=== PATIENT | female | born 1950 | race Caucasian/White ===

== ENCOUNTER → 2019-08-15 | Outpatient (CLI) | payer MEDICARE, MEDICAID, OTHER ==
--- NOTE | 2019-08-16 01:07 | REP ---
Clinical: Acute left shoulder pain. Technique: Internal rotation, external rotation, and Y view of the left shoulder. Findings: Age-related arthritic changes include cortical irregularity and very subtle spurring at the acromioclavicular joint as well as blunting to the calcified glenoid rim. The subacromial space is normal. No acute fracture or dislocation is appreciated. No periarticular calcifications or loose bodies noted. Surrounding soft tissues are unremarkable. Impression: Age-related arthritic changes. Electronically Signed by Mike Everett MD 08/16/2019 12:59 A
== END ==
LOC: M ADAMS 11:28
PROVIDERS: ATTEND Physician Assistant
DX: M25.512 Pain in left shoulder (principal); S84.90XA Injury of unspecified nerve at lower leg level, unspecified leg, initial encounter; F17.210 Nicotine dependence, cigarettes, uncomplicated; X58.XXXA Exposure to other specified factors, initial encounter; Y92.89 Other specified places as the place of occurrence of the external cause; Y93.9 Activity, unspecified; Y99.9 Unspecified external cause status
CPT/HCPCS: 73030; 90732; 93005; G0009; G0463

== ENCOUNTER → 2019-08-15 | Outpatient (REF) | payer OTHER ==
[2019-08-15 13:12] LABS: HEMATOCRIT 41.9 % (36.0-47.0); HEMOGLOBIN 13.8 g/dl (12.0-15.5); MEAN CORPUSCULAR HEMOGLOBIN 29.7 pg (27.0-33.0); MEAN CORPUSCULAR HGB CONC 32.9 g/dl (32.0-36.5); MEAN CORPUSCULAR VOLUME 90.1 fl (80.0-96.0); PLATELET COUNT, AUTOMATED 298 10^3/uL (150-450); RED BLOOD COUNT 4.65 10^6/uL (4.00-5.40); WHITE BLOOD COUNT 11.7 10^3/uL (4.0-10.0)
[2019-08-15 13:38] LABS: ALBUMIN 4.1 GM/DL (3.2-5.2); ALT/SGPT 37 U/L (12-78); BILIRUBIN,TOTAL 0.4 MG/DL (0.2-1.0); BLOOD UREA NITROGEN 14 MG/DL (7-18); CALCIUM LEVEL 9.4 MG/DL (8.8-10.2); CARBON DIOXIDE LEVEL 29 MEQ/L (21-32); CHLORIDE LEVEL 104 MEQ/L (98-107); CHOLESTEROL LEVEL 292 MG/DL (<200); CHOLESTEROL RISK RATIO 5.959 (<5); CREATININE FOR GFR 0.87 MG/DL (0.55-1.30); FREE T4 0.34 NG/DL (0.76-1.46); GLOMERULAR FILTRATION RATE > 60.0 (>45); GLUCOSE, FASTING 86 MG/DL (70-100); HDL CHOLESTEROL 49 MG/DL (>40); LDL CHOLESTEROL 225 MG/DL (<100); NON-HDL-C 243 MG/DL; POTASSIUM SERUM 4.3 MEQ/L (3.5-5.1); SODIUM LEVEL 138 MEQ/L (136-145); TOTAL PROTEIN 7.6 GM/DL (6.4-8.2); TRIGLYCERIDES LEVEL 88 MG/DL (<150)
[2019-08-15 14:56] LABS: CREATININE, URINE 60.1 MG/DL; MALB URINE SIEMENS 36.8 MG/L; MAU/CREAT RATIO 61.2 MCG/MG (0.0-30.0)
== END ==
LOC: M SFHCADAM 11:13
PROVIDERS: ATTEND Physician Assistant
DX: F17.210 Nicotine dependence, cigarettes, uncomplicated (principal); E03.9 Hypothyroidism, unspecified; I10 Essential (primary) hypertension; E78.00 Pure hypercholesterolemia, unspecified; F32.2 Major depressive disorder, single episode, severe without psychotic features; Z12.11 Encounter for screening for malignant neoplasm of colon

== ENCOUNTER → 2020-01-02 | Outpatient (REF) | payer MEDICARE, MEDICAID, OTHER ==
[2020-01-02 18:13] LABS: MEAN CORPUSCULAR HEMOGLOBIN 28.6 pg (27.0-33.0); MEAN CORPUSCULAR HGB CONC 32.4 g/dl (32.0-36.5); MEAN CORPUSCULAR VOLUME 88.1 fl (80.0-96.0); PLATELET COUNT, AUTOMATED 265 10^3/uL (150-450); WHITE BLOOD COUNT 10.4 10^3/uL (4.0-10.0)
[2020-01-02 18:42] LABS: ALBUMIN 3.6 GM/DL (3.2-5.2); ALT/SGPT 20 U/L (12-78); BILIRUBIN,TOTAL 0.3 MG/DL (0.2-1.0); BLOOD UREA NITROGEN 13 MG/DL (7-18); CALCIUM LEVEL 9.1 MG/DL (8.8-10.2); CARBON DIOXIDE LEVEL 29 MEQ/L (21-32); CHLORIDE LEVEL 108 MEQ/L (98-107); CHOLESTEROL LEVEL 202 MG/DL (<200); CHOLESTEROL RISK RATIO 4.809 (<5); CREATININE FOR GFR 0.53 MG/DL (0.55-1.30); FREE T4 1.33 NG/DL (0.76-1.46); GLOMERULAR FILTRATION RATE > 60.0 (>45); GLUCOSE, FASTING 74 MG/DL (70-100); HDL CHOLESTEROL 42 MG/DL (>40); LDL CHOLESTEROL 127 MG/DL (<100); NON-HDL-C 160 MG/DL; POTASSIUM SERUM 4.5 MEQ/L (3.5-5.1); SODIUM LEVEL 139 MEQ/L (136-145); TOTAL PROTEIN 6.8 GM/DL (6.4-8.2); TRIGLYCERIDES LEVEL 163 MG/DL (<150)
== END ==
LOC: M LABDRWAD 17:51
PROVIDERS: ATTEND Physician Assistant
DX: E78.5 Hyperlipidemia, unspecified (principal); E03.9 Hypothyroidism, unspecified; R63.4 Abnormal weight loss

== ENCOUNTER → 2020-01-13 | Outpatient (CLI) | payer MEDICARE, MEDICAID ==
--- NOTE | 2020-01-22 13:01 | REP ---
CT CHEST WITHOUT CONTRAST: LOW-DOSE LUNG CANCER SCREENING STUDY COMPARISON: None. CT FINDINGS: There is a granulomatous calcification visible in the left lower lobe on Page 55 of 98 in Series 201 of todays study. A 4 mm noncalcified nodule is seen in the right middle lobe on Page 36. There is a 2-3 mm nodule in the periphery of the left lower lobe on Page 38. No lung mass or other nodule is seen. Vascular calcifications noted. Study is otherwise unremarkable. IMPRESSION: Lung-RADS Category 2 findings. Repeat screening study suggested in one year. MTDD
== END ==
LOC: M RAD 14:00
PROVIDERS: ATTEND Physician Assistant
DX: R91.8 Other nonspecific abnormal finding of lung field (principal); F17.210 Nicotine dependence, cigarettes, uncomplicated

== ENCOUNTER 2020-10-19 16:45 | Emergency (ER) | payer MEDICARE, MEDICAID ==
[~2020-10-19] VITALS: Ht 162.6 cm; Wt 63.8 kg
[2020-10-19 16:47] VITALS: BP 182/84
[2020-10-19] MEDS ORDERED: LEVO100T5 (17:01)
[2020-10-19] MEDS ORDERED: SERT50TA29 (17:01)
--- NOTE | 2020-10-19 17:35 | REPVR ---
PROCEDURE INFORMATION: Exam: CT Head Without Contrast Exam date and time: 10/19/2020 5:17 PM Age: 70 years old Clinical indication: Injury or trauma; Fall; Blunt trauma (contusions or hematomas); Additional info: Trauma, R/O bleeding TECHNIQUE: Imaging protocol: Computed tomography of the head without contrast. Radiation optimization: All CT scans at this facility use at least one of these dose optimization techniques: automated exposure control; mA and/or kV adjustment per patient size (includes targeted exams where dose is matched to clinical indication); or iterative reconstruction. COMPARISON: No relevant prior studies available. FINDINGS: Brain: No intracranial hemorrhage or extra-axial fluid collection. No evidence of mass effect or midline shift. Alonso-white matter differentiation is intact. Cerebral ventricles: No ventriculomegaly. Paranasal sinuses: Visualized sinuses are unremarkable. No fluid levels. Mastoid air cells: Unremarkable. Bones/joints: No acute osseus lesion or fracture. Soft tissues: Unremarkable. IMPRESSION: No acute intracranial pathology. Electronically signed by: Andres Briones On 10/19/2020 17:34:40 PM
--- NOTE | 2020-10-19 17:36 | REPVR ---
PROCEDURE INFORMATION: Exam: CT Cervical Spine Without Contrast Exam date and time: 10/19/2020 5:17 PM Age: 70 years old Clinical indication: Injury or trauma; Fall; Blunt trauma; Additional info: Trauma, R/O bleeding TECHNIQUE: Imaging protocol: Computed tomography images of the cervical spine without contrast. Radiation optimization: All CT scans at this facility use at least one of these dose optimization techniques: automated exposure control; mA and/or kV adjustment per patient size (includes targeted exams where dose is matched to clinical indication); or iterative reconstruction. COMPARISON: LOW DOSE LUNG SCREENING CT 01/13/2020 2:20 PM FINDINGS: Bones/joints: Straightening of the cervical lordosis. Vertebral body heights are maintained. No locked or perched facets. Multilevel facet arthropathy. No acute cervical spine fracture. The dens is intact. Atlanto-axial intervals are normal. Discs/Spinal canal/Neural foramina: Multilevel degenerative changes with intervertebral disc height loss and osteophyte formation, most prominently at C3-C4 and C5-C6. Multilevel areas of mild canal narrowing. Lungs: Lung apices are clear. Soft tissues: Unremarkable. IMPRESSION: No acute cervical spine fracture. Electronically signed by: Andres Briones On 10/19/2020 17:36:07 PM
== END 2020-10-19 20:05 | disposition left against medical advice (07) ==
LOC: M ED 16:45
DX: Z53.21 Procedure and treatment not carried out due to patient leaving prior to being seen by health care provider (principal)

== ENCOUNTER → 2020-10-23 | Outpatient (REF) | payer OTHER ==
[~2020-10-23] MED LIST: LEVO100T5; SERT50TA29
[2020-10-23 12:51] LABS: HEMATOCRIT 43.4 % (36.0-47.0); HEMOGLOBIN 14.2 g/dl (12.0-15.5); MEAN CORPUSCULAR HEMOGLOBIN 29.5 pg (27.0-33.0); MEAN CORPUSCULAR HGB CONC 32.7 g/dl (32.0-36.5); PLATELET COUNT, AUTOMATED 307 10^3/uL (150-450); RED BLOOD COUNT 4.82 10^6/uL (4.00-5.40); WHITE BLOOD COUNT 10.3 10^3/uL (4.0-10.0)
[2020-10-23 13:30] LABS: ALBUMIN 4.2 GM/DL (3.2-5.2); ALT/SGPT 30 U/L (12-78); BILIRUBIN,TOTAL 0.3 MG/DL (0.2-1.0); BLOOD UREA NITROGEN 20 MG/DL (7-18); CALCIUM LEVEL 9.1 MG/DL (8.8-10.2); CARBON DIOXIDE LEVEL 32 MEQ/L (21-32); CHLORIDE LEVEL 107 MEQ/L (98-107); CHOLESTEROL LEVEL 251 MG/DL (<200); CHOLESTEROL RISK RATIO 5.577 (<5); CREATININE FOR GFR 0.68 MG/DL (0.55-1.30); FREE T4 0.59 NG/DL (0.76-1.46); GLOMERULAR FILTRATION RATE > 60.0 (>45); GLUCOSE, FASTING 77 MG/DL (70-100); HDL CHOLESTEROL 45 MG/DL (>40); LDL CHOLESTEROL 179 MG/DL (<100); NON-HDL-C 206 MG/DL; POTASSIUM SERUM 4.9 MEQ/L (3.5-5.1); SODIUM LEVEL 139 MEQ/L (136-145); TOTAL PROTEIN 7.5 GM/DL (6.4-8.2); TRIGLYCERIDES LEVEL 135 MG/DL (<150)
== END ==
LOC: M SFHCADAM 09:39
PROVIDERS: ATTEND Physician Assistant
DX: F32.2 Major depressive disorder, single episode, severe without psychotic features (principal); F17.210 Nicotine dependence, cigarettes, uncomplicated; E03.9 Hypothyroidism, unspecified; E78.1 Pure hyperglyceridemia

== ENCOUNTER → 2020-10-23 | Outpatient (CLI) | payer OTHER ==
--- NOTE | 2020-10-23 10:06 | REP ---
INDICATION: INJURY OF LEFT GREAT TOE, INITIAL ENCOUNTER COMPARISON: None. TECHNIQUE: AP, lateral, bilateral oblique views left foot. FINDINGS: Age-related osteopenia and generalized arthritic degenerative changes are appreciated. There is a transverse fracture involving the distal aspect of the 1st toe proximal phalanx. No further acute fracture or dislocation identified. IMPRESSION: Subtle minimally angulated transverse fracture along the distal aspect of the 1st proximal phalanx. <Electronically signed by Mike Everett > 10/23/20 1008
== END ==
LOC: M ADAMS 09:41
PROVIDERS: ATTEND Physician Assistant
DX: S99.922A Unspecified injury of left foot, initial encounter (principal); W18.30XA Fall on same level, unspecified, initial encounter; Y92.009 Unspecified place in unspecified non-institutional (private) residence as the place of occurrence of the external cause

== ENCOUNTER → 2020-11-25 | Outpatient (CLI) | payer MEDICARE, MEDICAID ==
--- NOTE | 2020-11-25 09:56 | REP ---
INDICATION: BRUIT, SCREENING FOR AAA. COMPARISON: None. TECHNIQUE: Multiple sonographic images of the abdominal aorta. FINDINGS: Abdominal aortic measurements: Proximal, at diaphragm: 2.4 cm AP x 2.0 cm transverse Renal artery level: 1.6 cm AP x 1.9 cm transverse Mid aorta: 1.5 cm AP x 1.4 cm transverse Distal aorta, pre bifurcation: 1.1 cm AP x 1.0 cm transverse Right common iliac artery: 0.7 cm AP x 0.6 cm transverse Left common iliac artery: 0.6 cm AP x 0.6 cm transverse IMPRESSION: The aortic diameters are in the normal range. There is no abdominal aortic aneurysm. There is mild abdominal aortic atheroma. <Electronically signed by Ubaldo Garcia > 11/25/20 [id number]
--- NOTE | 2020-11-25 10:02 | REP ---
INDICATION: BRUIT, SCREENING FOR AAA. COMPARISON: None. TECHNIQUE: Bilateral carotid artery duplex ultrasound. FINDINGS: Peak flow velocities: Right left Internal carotid artery 70 cm/sec 93 cm/sec Int. Carotid diastolic the 25 cm/sec 32 cm/sec External carotid artery 81 cm/sec 108 cm/sec Common carotid artery 130 cm/sec 90 cm/sec ICA-CCA ratio 0.53 1.04 There is intimal thickening bilaterally and there is a focal atheromatous plaque in the distal bulbs extending in to the proximal internal carotid arteries and external carotid arteries bilaterally. However, the peak flow velocities are normal bilaterally. There is no evidence of stenosis on the right or the left by duplex ultrasound. There is antegrade flow in the vertebral arteries bilaterally. IMPRESSION: There is no evidence of stenosis by duplex Doppler ultrasound. <Electronically signed by Ubaldo Garcia > 11/25/20 0930
== END ==
LOC: M RAD 09:07
PROVIDERS: ATTEND Physician Assistant
DX: Z13.6 Encounter for screening for cardiovascular disorders (principal); I70.0 Atherosclerosis of aorta; R06.89 Other abnormalities of breathing; F17.210 Nicotine dependence, cigarettes, uncomplicated

== ENCOUNTER → 2021-02-10 | Outpatient (REF) | payer MEDICARE, MEDICAID ==
[2021-02-10 16:54] LABS: HEMATOCRIT 44.2 % (36.0-47.0); HEMOGLOBIN 14.3 g/dl (12.0-15.5); MEAN CORPUSCULAR HEMOGLOBIN 29.9 pg (27.0-33.0); MEAN CORPUSCULAR HGB CONC 32.4 g/dl (32.0-36.5); MEAN CORPUSCULAR VOLUME 92.3 fl (80.0-96.0); PLATELET COUNT, AUTOMATED 317 10^3/uL (150-450); RED BLOOD COUNT 4.79 10^6/uL (4.00-5.40); WHITE BLOOD COUNT 12.1 10^3/uL (4.0-10.0)
[2021-02-10 17:22] LABS: FOLATE 8.3 NG/ML; TOTAL 25(OH) VITAMIN D 18.2 NG/ML (30.0-100.0)
[2021-02-10 17:24] LABS: ALBUMIN 4.1 GM/DL (3.2-5.2); ALT/SGPT 28 U/L (12-78); BILIRUBIN,TOTAL 0.4 MG/DL (0.2-1.0); BLOOD UREA NITROGEN 19 MG/DL (7-18); CALCIUM LEVEL 9.9 MG/DL (8.8-10.2); CARBON DIOXIDE LEVEL 29 MEQ/L (21-32); CHLORIDE LEVEL 109 MEQ/L (98-107); CHOLESTEROL LEVEL 250 MG/DL (<200); CHOLESTEROL RISK RATIO 5.681 (<5); CREATININE FOR GFR 0.73 MG/DL (0.55-1.30); FREE T4 0.78 NG/DL (0.76-1.46); GLOMERULAR FILTRATION RATE > 60.0 (>45); GLUCOSE, FASTING 79 MG/DL (70-100); HDL CHOLESTEROL 44 MG/DL (>40); LDL CHOLESTEROL 172 MG/DL (<100); NON-HDL-C 206 MG/DL; POTASSIUM SERUM 4.6 MEQ/L (3.5-5.1); SODIUM LEVEL 141 MEQ/L (136-145); TOTAL PROTEIN 7.7 GM/DL (6.4-8.2); TRIGLYCERIDES LEVEL 168 MG/DL (<150)
== END ==
LOC: M SFHCADAM 14:06
PROVIDERS: ATTEND Physician Assistant
DX: E03.9 Hypothyroidism, unspecified (principal); E78.00 Pure hypercholesterolemia, unspecified; I10 Essential (primary) hypertension; G62.9 Polyneuropathy, unspecified

== ENCOUNTER → 2021-10-12 | Outpatient (REF) | payer OTHER ==
[2021-10-12 16:14] LABS: BASO # 0.1 10^3/uL (0.0-0.2); BASO % 0.6 % (0.0-1.0); EOS # 0.4 10^3/uL (0.0-0.5); EOS % 3.8 % (0.0-3.0); HEMATOCRIT 43.6 % (36.0-47.0); HEMOGLOBIN 14.2 g/dl (12.0-15.5); LYMPH # 2.3 10^3/uL (1.5-5.0); LYMPH % 22.6 % (24.0-44.0); MEAN CORPUSCULAR HEMOGLOBIN 29.5 pg (27.0-33.0); MEAN CORPUSCULAR HGB CONC 32.6 g/dl (32.0-36.5); MEAN CORPUSCULAR VOLUME 90.6 fl (80.0-96.0); MONO # 0.8 10^3/uL (0.0-0.8); MONO % 7.9 % (2.0-8.0); NEUTROPHILS # 6.7 10^3/uL (1.5-8.5); NEUTROPHILS % 64.6 % (36.0-66.0); PLATELET COUNT, AUTOMATED 268 10^3/uL (150-450); RED BLOOD COUNT 4.81 10^6/uL (4.00-5.40); WHITE BLOOD COUNT 10.4 10^3/uL (4.0-10.0)
[2021-10-12 16:28] LABS: ALT/SGPT 25 U/L (12-78); BILIRUBIN,TOTAL 1.3 MG/DL (0.2-1.0); BLOOD UREA NITROGEN 20 MG/DL (7-18); CALCIUM LEVEL 9.2 MG/DL (8.8-10.2); CARBON DIOXIDE LEVEL 28 MEQ/L (21-32); CHLORIDE LEVEL 109 MEQ/L (98-107); CHOLESTEROL LEVEL 129 MG/DL (<200); CHOLESTEROL RISK RATIO 3.685 (<5); CREATININE FOR GFR 0.72 MG/DL (0.55-1.30); FREE T4 1.12 NG/DL (0.76-1.46); GLOMERULAR FILTRATION RATE > 60.0 (>39); GLUCOSE, FASTING 90 MG/DL (70-100); HDL CHOLESTEROL 35 MG/DL (>40); LDL CHOLESTEROL 52 MG/DL (<100); NON-HDL-C 94 MG/DL; SODIUM LEVEL 141 MEQ/L (136-145); TOTAL PROTEIN 7.1 GM/DL (6.4-8.2); TRIGLYCERIDES LEVEL 209 MG/DL (<150)
== END ==
LOC: M SFHCADAM 13:18
PROVIDERS: ATTEND Physician Assistant
DX: E78.00 Pure hypercholesterolemia, unspecified (principal); E03.9 Hypothyroidism, unspecified; M25.562 Pain in left knee; I10 Essential (primary) hypertension

== ENCOUNTER → 2021-10-12 | Outpatient (CLI) | payer OTHER | LOC: M ADAMS 13:26 | PROVIDERS: ATTEND Physician Assistant | DX: M25.562 Pain in left knee (principal); M17.12 Unilateral primary osteoarthritis, left knee; M11.262 Other chondrocalcinosis, left knee ==

== ENCOUNTER → 2021-10-29 | Outpatient (CLI) | payer OTHER | LOC: M SOG 09:08 | PROVIDERS: ATTEND Orthopaedic Surgery Adult Reconstructive Orthopaedic Surgery | DX: M17.12 Unilateral primary osteoarthritis, left knee (principal); M25.462 Effusion, left knee; M25.562 Pain in left knee ==

== ENCOUNTER → 2022-11-15 | Outpatient (CLI) | payer OTHER ==
[2022-11-15 14:54] LABS: BLOOD UREA NITROGEN 21 MG/DL (9-23); CREATININE FOR GFR 0.65 MG/DL (0.55-1.30); GLOMERULAR FILTRATION RATE > 60.0 (>39)
[2022-11-15 14:56] LABS: FOLATE 12.5 NG/ML (>5.4); VITAMIN B12 LEVEL 404 PG/ML (211-911)
== END ==
LOC: M LAB 13:29
PROVIDERS: ATTEND Psychiatry & Neurology Neurology
DX: H53.2 Diplopia (principal); H02.409 Unspecified ptosis of unspecified eyelid

== ENCOUNTER → 2022-11-16 | Outpatient (REF) | payer OTHER ==
[2022-11-23 16:08] LABS: VITAMIN B1 LEVEL WHOLE BLOOD 151.9 nmol/L (66.5-200.0); VITAMIN B6,PYRIDOXAL PHOSPHATE 5.6 ug/L (3.4-65.2); VITAMIN E(ALPHA TOCOPHEROL) 8.7 mg/L (9.0-29.0); VITAMIN E(GAMMA TOCOPHEROL) 0.4 mg/L (0.5-4.9)
== END ==
LOC: M LAB REF 12:14
PROVIDERS: ATTEND Psychiatry & Neurology Neurology
DX: H53.2 Diplopia (principal); H02.409 Unspecified ptosis of unspecified eyelid

== ENCOUNTER → 2023-03-29 | Outpatient (REF) | payer OTHER ==
[2023-03-29 16:24] LABS: APPEARANCE, URINE HAZY (CLEAR); BACTERIA, URINE AUTO NEGATIVE (NEGATIVE); BASO # 0.1 10^3/uL (0.0-0.2); BASO % 0.7 % (0.0-1.0); BILIRUBIN, URINE AUTO NEGATIVE (NEGATIVE); BLOOD, URINE BLOOD NEGATIVE (NEGATIVE); COLOR, URINE YELLOW (YELLOW); EOS # 0.3 10^3/uL (0.0-0.5); EOS % 2.9 % (0.0-3.0); GLUCOSE, URINE (UA) AUTO NEGATIVE (NEGATIVE); HEMATOCRIT 43.8 % (36.0-47.0); HEMOGLOBIN 14.2 g/dl (12.0-15.5); KETONE, URINE AUTO TRACE mg/dL (NEGATIVE); LEUKOCYTE ESTERASE, URINE AUTO TRACE (NEGATIVE); LYMPH # 2.5 10^3/uL (1.5-5.0); LYMPH % 23.3 % (24.0-44.0); MEAN CORPUSCULAR HEMOGLOBIN 29.2 pg (27.0-33.0); MEAN CORPUSCULAR HGB CONC 32.4 g/dl (32.0-36.5); MEAN CORPUSCULAR VOLUME 89.9 fl (80.0-96.0); MONO % 9.4 % (2.0-8.0); MUCUS, URINE SMALL (NEGATIVE); NEUTROPHILS # 6.7 10^3/uL (1.5-8.5); NEUTROPHILS % 63.3 % (36.0-66.0); NITRITE, URINE AUTO NEGATIVE (NEGATIVE); PLATELET COUNT, AUTOMATED 268 10^3/uL (150-450); PROTEIN, URINE AUTO NEGATIVE (NEGATIVE); RBC, URINE AUTO 1 /HPF (0-3); RED BLOOD COUNT 4.87 10^6/uL (4.00-5.40); SPECIFIC GRAVITY URINE AUTO 1.024 (1.002-1.035); SQUAMOUS EPITHELIAL CELL UR AU 2 /HPF (0-6); UROBILINOGEN, URINE AUTO 0.2 mg/dL (0.0-2.0); WBC, URINE AUTO 3 /HPF (0-3); WHITE BLOOD COUNT 10.5 10^3/uL (4.0-10.0)
[2023-03-29 16:50] LABS: THYROID STIMULATING HORMONE 0.026 uIU/ML (0.55-4.78)
[2023-03-29 16:51] LABS: FREE T4 1.29 NG/DL (0.89-1.76)
[2023-03-29 16:52] LABS: TOTAL 25(OH) VITAMIN D 49.2 NG/ML (20.0-100.0)
[2023-03-29 16:55] LABS: ALBUMIN 4.1 G/DL (3.2-5.2); ALKALINE PHOSPHATASE 111 U/L (46-116); ALT/SGPT 24 U/L (7.0-40); AST/SGOT 19 U/L (<34); BILIRUBIN,TOTAL 0.4 MG/DL (0.3-1.2); BLOOD UREA NITROGEN 21 MG/DL (9-23); CALCIUM LEVEL 9.7 MG/DL (8.3-10.6); CARBON DIOXIDE LEVEL 28 MMOL/L (20-31); CHLORIDE LEVEL 110 MMOL/L (98-107); CHOLESTEROL LEVEL 132 MG/DL (<200); CHOLESTEROL RISK RATIO 2.89 (<5); CREATININE FOR GFR 0.58 MG/DL (0.55-1.30); FOLATE 12.3 NG/ML (>5.4); GLOMERULAR FILTRATION RATE > 60.0 (>39); GLUCOSE, FASTING 93 MG/DL (74-106); HDL CHOLESTEROL 45.6 MG/DL (>40); LDL CHOLESTEROL 70.2 MG/DL (<100); NON-HDL-C 86.4 MG/DL; POTASSIUM SERUM 4.8 MMOL/L (3.5-5.1); SODIUM LEVEL 143 MMOL/L (136-145); TOTAL PROTEIN 6.9 G/DL (5.7-8.2); TRIGLYCERIDES LEVEL 81 MG/DL (<150)
[2023-03-29 16:58] LABS: VITAMIN B12 LEVEL > 2000 PG/ML (211-911)
== END ==
LOC: M SFHCADAM 14:54
PROVIDERS: ATTEND Physician Assistant
DX: Z00.00 Encounter for general adult medical examination without abnormal findings (principal); F17.210 Nicotine dependence, cigarettes, uncomplicated; E03.9 Hypothyroidism, unspecified; E78.00 Pure hypercholesterolemia, unspecified; F32.2 Major depressive disorder, single episode, severe without psychotic features; N39.41 Urge incontinence; Z12.11 Encounter for screening for malignant neoplasm of colon; R06.2 Wheezing; Z79.899 Other long term (current) drug therapy

== ENCOUNTER 2024-06-01 18:47 | Emergency (ER) | payer OTHER ==
[~2024-06-01] VITALS: Ht 162.6 cm; Wt 62.7 kg
[2024-06-01 18:57] VITALS: TEMP 96.6
[2024-06-01] MEDS ORDERED: ATOR40TA75 (19:01)
[2024-06-01] MEDS ORDERED: hydrALAZINE 20MG/ML 1ML VIAL IV STA (21:43)
[2024-06-01 22:05] LABS: BASO # 0.1 10^3/uL (0.0-0.2); EOS # 0.6 10^3/uL (0.0-0.5); EOS % 4.8 % (0.0-3.0); HEMATOCRIT 42.2 % (36.0-47.0); HEMOGLOBIN 14.2 g/dl (12.0-15.5); LYMPH # 2.8 10^3/uL (1.5-5.0); LYMPH % 23.8 % (24.0-44.0); MEAN CORPUSCULAR HEMOGLOBIN 29.9 pg (27.0-33.0); MEAN CORPUSCULAR HGB CONC 33.6 g/dl (32.0-36.5); MEAN CORPUSCULAR VOLUME 88.8 fl (80.0-96.0); MONO # 0.8 10^3/uL (0.0-0.8); NEUTROPHILS # 7.3 10^3/uL (1.5-8.5); NEUTROPHILS % 63.1 % (36.0-66.0); PLATELET COUNT, AUTOMATED 263 10^3/uL (150-450); RED BLOOD COUNT 4.75 10^6/uL (4.00-5.40); WHITE BLOOD COUNT 11.6 10^3/uL (4.0-10.0)
[2024-06-01 22:30] LABS: BLOOD UREA NITROGEN 15 MG/DL (9-23); CALCIUM LEVEL 9.5 MG/DL (8.3-10.6); CARBON DIOXIDE LEVEL 29 MMOL/L (20-31); CHLORIDE LEVEL 106 MMOL/L (98-107); CREATININE FOR GFR 0.61 MG/DL (0.55-1.30); GLOMERULAR FILTRATION RATE > 60.0 (>39); GLUCOSE, FASTING 106 MG/DL (74-106); POTASSIUM SERUM 3.4 MMOL/L (3.5-5.1); SODIUM LEVEL 141 MMOL/L (136-145)
[2024-06-01 22:31] LABS: CPK CREATINE PHOSPHOKINASE 208 U/L (34-145); MB/CK RELATIVE INDEX 1.92 (< OR =4)
[2024-06-01 23:01] VITALS: BP 137/62; O2SAT 95
== END 2024-06-01 23:15 | disposition left against medical advice (07) ==
LOC: M ED 18:47
DX: I10 Essential (primary) hypertension (principal); Z53.9 Procedure and treatment not carried out, unspecified reason; E78.5 Hyperlipidemia, unspecified; F17.200 Nicotine dependence, unspecified, uncomplicated; Z79.899 Other long term (current) drug therapy

== ENCOUNTER → 2024-07-31 | Outpatient (REF) | payer MEDICARE ==
[~2024-07-31] MED LIST changes: +ATOR40TA75
[2024-07-31 17:43] LABS: CHOLESTEROL RISK RATIO 3.22 (<5); LDL CHOLESTEROL 65.8 MG/DL (<100)
[2024-07-31 17:44] LABS: FREE T4 1.62 NG/DL (0.89-1.76); THYROID STIMULATING HORMONE 0.095 uIU/ML (0.55-4.78)
[2024-07-31 18:12] LABS: HEMOGLOBIN A1c 5.1 % (4.0-6.0)
== END ==
LOC: M SFHCADAM 13:09
PROVIDERS: ATTEND Physician Assistant
DX: Z00.00 Encounter for general adult medical examination without abnormal findings (principal); F32.2 Major depressive disorder, single episode, severe without psychotic features; Z59.82 Transportation insecurity; F17.210 Nicotine dependence, cigarettes, uncomplicated; I10 Essential (primary) hypertension; E03.9 Hypothyroidism, unspecified; E78.00 Pure hypercholesterolemia, unspecified; Z79.899 Other long term (current) drug therapy

== ENCOUNTER → 2024-12-17 | Outpatient (CLI) | payer MEDICARE | LOC: M RAD 12:28 | PROVIDERS: ATTEND Physician Assistant | DX: Z12.2 Encounter for screening for malignant neoplasm of respiratory organs (principal); F17.210 Nicotine dependence, cigarettes, uncomplicated; J84.10 Pulmonary fibrosis, unspecified; I25.10 Atherosclerotic heart disease of native coronary artery without angina pectoris ==

== ENCOUNTER → 2025-03-06 | Outpatient (REF) | payer MEDICARE | LOC: M SFHCADAM 14:29 | PROVIDERS: ATTEND Physician Assistant | DX: Z53.9 Procedure and treatment not carried out, unspecified reason (principal) ==